=== PATIENT | male | born 1990 | race African-American/Black ===

== ENCOUNTER 2017-06-15 13:39 | Emergency (ER) | payer MEDICAID ==
[~2017-06-15] VITALS: Ht 172.7 cm; Wt 96.0 kg
[2017-06-15 14:17] VITALS: BP 119/71
== END 2017-06-15 15:36 | disposition left against medical advice (07) ==
LOC: ER 13:39
DX: F10.20 Alcohol dependence, uncomplicated (principal); E11.9 Type 2 diabetes mellitus without complications; J45.909 Unspecified asthma, uncomplicated; R56.9 Unspecified convulsions
CPT/HCPCS: 99283